=== PATIENT | female | born 1990 | race Caucasian/White ===

== ENCOUNTER → 2017-08-25 | Outpatient (CLI) | payer BC | END | disposition home or self-care (01) | LOC: C.PAPS 07:58 | PROVIDERS: ATTEND Physician Assistant | DX: R87.615 Unsatisfactory cytologic smear of cervix (principal) ==

== ENCOUNTER → 2017-09-07 | Outpatient (CLI) | payer BC | END | disposition home or self-care (01) | LOC: C.PAPS 09:35 | PROVIDERS: ATTEND Physician Assistant | DX: R87.615 Unsatisfactory cytologic smear of cervix (principal) ==